=== PATIENT | male | born 1970 | race Caucasian/White ===

== ENCOUNTER 2023-11-20 20:37 | Emergency (ER) | payer OTHER, SELFPAY ==
[2023-11-20 20:43] VITALS: BP 164/86; BMI 25.3
[2023-11-20 21:00] VITALS: BP 130/85
[2023-11-20 21:16] LABS: % Basophils 0.4 % (0-2); % Eosinophils 1.8 % (0-6); % Immature Granulocytes 0.4 % (0-0.5); % Lymphocytes 29.3 % (20.5-51.1); % Neutrophils 61.1 % (42.2-75.2); Absolute Eosinophils 0.2 10^3/uL (0-0.7); Absolute Lymphocytes 2.7 10^3/uL (1.2-3.4); Absolute Monocytes 0.6 10^3/uL (0.1-0.6); Absolute Neutrophils 5.5 10^3/uL (1.4-6.5); Hematocrit 39.2 % (39.0-52.0); Hemoglobin 13.8 g/dL (13.0-18.0); Mean Corp Hgb Conc. 35.2 g/dL (33.0-37.0); Mean Corpuscular Hgb 30.8 pg (27.0-31.0); Mean Corpuscular Volume 87.5 fL (80.0-94.0); Mean Platelet Volume 9.5 fL (7.4-10.4); Nucleated Red Blood Cells % 0 % (-); Platelet Count 250 10^3/uL (130-400); Red Blood Cell Count 4.48 10^6/uL (4.70-6.10); White Blood Cell Count 9.1 10^3/uL (4.8-10.8)
[2023-11-20 21:35] LABS: ALT (SGPT) 22 U/L (0-50); AST (SGOT) 29 U/L (17-59); Albumin 4.5 g/dl (3.5-5.0); Alkaline Phosphatase 93 U/L (38-126); Blood Urea Nitrogen 19 mg/dl (9-20); Calcium 10.3 mg/dl (8.4-10.2); Carbon Dioxide 26 mmol/L (22-30); Chloride 103 mmol/L (98-107); Estimated Creatinine Clearance 105 ml/min; Glucose 109 mg/dl (70-99); Sodium 137 mmol/L (135-145); Total Bilirubin 0.5 mg/dl (0.2-1.3); Total Protein 7.6 g/dl (6.3-8.2); eGFR > 60.00
[2023-11-20 21:42] LABS: Troponin I < 0.012 ng/ml
--- NOTE | 2023-11-20 21:58 | EDRN ---
Updated patient and on lab results, patient resting reading a book.
[2023-11-20 22:00] VITALS: BP 115/73
--- NOTE | 2023-11-20 22:34 | ED.GENMED ---
History of Present Illness
General
Chief Complaint: Chest Pain
Source: patient
Time Seen by Provider: 11/20/23 21:57
Travel History
Have you had any contact with someone who has COVID-19?: No
Do you have any symptoms of coronavirus? Fever > 100 degrees, chills, cough, shortness of breath, sore throat, loss of taste or smell, muscle aches, or headache?: No
History of Present Illness
History of Present Illness:
53-year-old gentleman presents to the emergency room complaining of pain in his chest and back. Patient first recognized the pain yesterday evening. He was asleep and it woke him from sleep. Pain at that time was located in the anterior lower
chest. He describes this as an indigestion type pain. He took Tums which may have helped. The pain went away about an hour after taking them. He was able to sleep the rest of the night. He was fine during the day today but this evening he began
having pain in the back directly behind the spine and the chest he had the pain. This pain is worse with taking a deep breath. He does not feel short of breath. Patient was vacationing in [place] so he did have about a 2-1/2-hour drive there and
back. Patient denies any fever, chills, cough.
Past History
Past History
ED Past Medical History: Other (migraine h/a)
ED Past Surgical History: None
Social History
Tobacco: Non-smoker
Alcohol: None
Drug: None
Personal:
Living: with family
Employment: Employed
Family History
Family History: Hypertension (MGM) and Other (n/c); Negative CAD
Phy Exam
Physical Exam
Physical Exam:
General: Awake, Alert, Oriented X3. No acute distress.
Vitals: unremarkable
Head: Atraumatic
Eyes: Pupils equal, EOMI
Throat: Airway intact, no exudates
Neck: Trachea midline
Lungs: Clear and equal b/l
Heart: Regular rate, no murmurs
Abd: Soft, Nontender, No pulsatile mass
Neuro: Nonfocal
Skin: Warm, dry, no rash
Extremities: pulses equal b/l, no edema
Scores
Heart Score for Chest Pain Patients
STEMI patient?: No
History: Slightly or Non-Suspicious
ECG: Normal
Age: >45 - <65 years
Risk Factors: No Risk Factors
Troponin: </= Normal Limit
Heart Score for Chest Pain Patients: 1
Heart Score Risk: 2.5% MACE over next 6 weeks
Course
Orders/Labs/Results
Orders:
Orders
11/20/23 20:39
Electrocardiogram (*1) Urgent
Reason for Study: Chest Pain
EKG- Treatment ONCE
11/20/23 20:56
Cardiac Monitoring- Treatment ONCE
11/20/23 20:58
CMP [Comprehensive Metabolic Panel] Urgent
Complete Blood Count/With Diff Urgent
Troponin I Urgent
11/20/23 22:34
Ketorolac [Toradol] 15 mg IV NOW STA
11/20/23 22:46
D-Dimer Urgent
11/20/23 23:11
CR Chest - 2 Views Urgent
Comment:
Reason For Exam: chest pain
Abnormal Lab Results
11/20/23
20:58
RBC 4.48 L 10^6/uL
(4.70-6.10)
Glucose 109 H mg/dl
(70-99)
Calcium 10.3 H mg/dl
(8.4-10.2)
11/20/23 20:58
11/20/23 20:58
Vital Signs
Initial and Last Documented VS:
Initial Vital Signs
Temp Pulse Resp BP Pulse Ox
98.4 F 92 16 164/86 100
11/20/23 20:43 11/20/23 20:43 11/20/23 20:43 11/20/23 20:43 11/20/23 20:43
Last Documented Vital Signs
Temp Pulse Resp BP Pulse Ox
98.4 F 85 20 115/73 95
11/20/23 20:43 11/20/23 22:45 11/20/23 22:45 11/20/23 22:00 11/20/23 22:45
MDM/Problems Addressed
Differential Diagnosis Includes:
Acute coronary syndrome, PE, pneumothorax, chest wall pain, GERD
MDM/Problems Addressed:
Patient presents with chest discomfort that is been present now for 24 hours. Pain did seem to improve during the day but returned last night. EKG shows no acute ischemic changes. Troponin is normal. Given the length of time the patient has had
symptoms 1 troponin is adequate. D-dimer is normal. Chest x-ray shows no acute abnormalities. Unclear the source of the patient's chest discomfort but improving if underlying cause. Patient will be given discharge instructions to follow.
[facility] given his medical record number.
*Radiology
Radiology exam reviewed: preliminary read by ED provider (Personally viewed the patient's chest x-ray and see no acute disease)
*Pulse Oximetry
Patient hypoxic: no
*EKG
Interpreted by ED Provider?: Yes
Heart Rate: 95
Rate: normal
Rhythm: sinus
Shaniko: normal axis
Interval: normal interval
QRS Pattern: normal QRS
Ischemia: no ischemia
*Medicaid Billing Clerk Interpretation
Rate: normal
Interpretation: normal
Heart Rate: 95
Rhythm: sinus
*Critical Care Note
Total Time (30-74mins, 75-104mins- exclusive of procedures): Not Applicable
ED Attending Note
-
Portions of this chart may have been created with voice recognition software.� Occasional wrong word or��sound alike� substitutions may have occurred due to the inherent limitations of voice recognition software.
Discharge Plan
Departure
Patient Disposition: Home (Routine Discharge)
Date of Disposition: 11/21/23
Time of Disposition: 00:12
Patient with high blood pressure during this ER visit?: No
Condition: Good
Discharge Problem:
Chest pain
Instructions: Chest Pain DCA Follow Up
Prescriptions:
No Action
rizatriptan [Maxalt] 10 MG tablet
10 mg PO PRN PRN (Reason: migraines)
cyproheptadine 4 mg Tablet
2 mg PO HS
celecoxib [Celebrex] 50 mg Capsule
100 mg PO BID
Referrals:
Alf Hawk PA [Family Provider] -
Interventions
Interventions:
*Risk Screen - Suicide Last Done: 11/20/23 20:42
*General Assessment Last Done: 11/20/23 20:42
*Neglect/Abuse Screening Last Done: 11/20/23 20:42
ED- Fall Risk Assessment Last Done: 11/20/23 21:25
*ED COVID-19 Vaccine History Last Done: 11/20/23 20:43
ED- Cardiac Assessment Last Done: 11/20/23 21:25
Discharge Date and Time
Print Language: BELARUSIAN
[2023-11-20] MEDS: TORADOL 15 MG IV (22:46)
[2023-11-20 23:00] VITALS: BP 113/78
[2023-11-20 23:06] LABS: D-Dimer 0.43 ug/mlFEU (0.00-0.50)
== END 2023-11-21 00:52 | disposition home or self-care (01) ==
LOC: EMR 20:37
PROVIDERS: Emergency Medicine; EMERGENCY PHYSICIAN Emergency Medicine; FAMILY PHYSICIAN Physician Assistant
DX: R07.89 Other chest pain (principal)
CPT/HCPCS: 99285; 96374; 71046; 80053; 84484; 85025; 85379; 93005

== ENCOUNTER 2025-01-13 13:49 | Emergency (ER) | payer OTHER, SELFPAY ==
[2025-01-13 13:52] VITALS: BP 168/99
--- NOTE | 2025-01-13 16:31 | ED.SKININJ ---
HPI-Injury
General
Chief Complaint: Skin Surface Trauma
Source: patient
Exam Limitations: none
Time Seen by Provider: 01/13/25 16:00
Nursing documentation reviewed up to this point in time: agreed with
History of Present Illness-Injury
Initial Injury comments:
54-year-old male presents with a laceration of the right thumb from a piece of wood that kicked back from his table saw. He is unsure as of his last tetanus immunization.
Past History
Past History
ED Past Medical History: Other (migraine h/a)
ED Past Surgical History: None
Social History
Tobacco: Non-smoker
Alcohol: None
Drug: None
Personal:
Living: with family
Employment: Employed
Family History
Family History: Hypertension (MGM) and Other (n/c); Negative CAD
Review of Systems
Review of Systems
Allergies reviewed?: Yes
All Other Systems: ROS reviewed and negative except as documented in HPI and ROS
Skin: Reports other (Cut right thumb)
Neurological: Denies numbness
Skin Exam
Laceration
base of right thumb, dorsal aspect:
Length in cm: 2
Orientation: L shaped
Type of Laceration: simple
Any active bleeding?: low grade venous oozing
Distal skin color and temperature: normal-warm & good color
Normal distal neurovascular exam: Yes
Range of motion: full
Phy Exam
Physical Exam
Physical Exam:
PHYSICAL EXAMINATION:
General: no apparent distress, not acutely ill
Neuro: alert and oriented.
Psychiatric: well kept. interactive and cooperative
Musculoskeletal: Moves with ease
Skin: Warm, pink.
Course
Orders/Labs/Results
Orders:
Orders
01/13/25 16:31
Tetanus/Diphth/Acelpertussis [Adacel] 0.5 ml IM .ONCE ONE
Vital Signs
Initial and Last Documented VS:
Initial Vital Signs
Temp Pulse Resp BP Pulse Ox
98.5 F 80 16 168/99 97
01/13/25 13:52 01/13/25 13:52 01/13/25 13:52 01/13/25 13:52 01/13/25 13:52
Last Documented Vital Signs
Temp Pulse Resp BP Pulse Ox
98.5 F 80 16 168/99 97
01/13/25 13:52 01/13/25 13:52 01/13/25 13:52 01/13/25 13:52 01/13/25 13:52
Procedures
Laceration Closure
base of right thumb, dorsal aspect:
Status of Wound: clean
Size of Wound in cm: 2
Description of Wound Edges: sharp
Preparation: cleaned with saline
Anesthesia: 1% Lidocaine with epi
Revision/Debridement: routine- no revision
Wound exploration: explored to base- no FB and no tendon involvement
Type of Closure: single layer closure
Skin Closure Material: 4-0 nylon
Number of sutures: 8
Additional information:
ATB ointment, non stich and sterile gauze dressing applied
MDM/Problems Addressed
MDM/Problems Addressed:
54-year-old male presents with a laceration of the right thumb from a piece of wood that kicked back from his table saw. He is unsure as of his last tetanus immunization.
Tdap updated
*Critical Care Note
Total Time (30-74mins, 75-104mins- exclusive of procedures): Not Applicable
ED Attending Note
-
Portions of this chart may have been created with voice recognition software.� Occasional wrong word or��sound alike� substitutions may have occurred due to the inherent limitations of voice recognition software.
Discharge Plan
Departure
Patient Disposition: Home (Routine Discharge)
Date of Disposition: 01/13/25
Time of Disposition: 16:35
Patient with high blood pressure during this ER visit?: No
Condition: Good
Discharge Problem:
Laceration of right hand
Instructions: Laceration Repair With Stitches (DC)
Prescriptions:
No Action
rizatriptan [Maxalt] 10 MG tablet
10 mg PO PRN PRN (Reason: migraines)
cyproheptadine 4 mg Tablet
2 mg PO HS
celecoxib [Celebrex] 50 mg Capsule
100 mg PO BID
Referrals:
Alf Hawk PA [Family Provider, Family Practice] - Call in 1-3 days for appt
Activity Restrictions/Additional Instructions:
As we discussed, have the sutures removed in 12 to 14 days.
Seek medical care immediately for signs of infection which may include increasing pain, redness, swelling, pus drainage, red streak up the arm.
Interventions
Interventions:
*Risk Screen - Suicide Last Done: 01/13/25 13:52
*General Assessment Last Done: 01/13/25 13:52
*Neglect/Abuse Screening Last Done: 01/13/25 16:47
*ED- Fall Risk Assessment Last Done: 01/13/25 16:47
*ED COVID-19 Vaccine History Last Done: 01/13/25 16:47
*Nursing Disposition Last Done: 01/13/25 16:47
ED-Skin Assessment Last Done: 01/13/25 16:47
Discharge Date and Time
Discharge Date/Time: 01/13/25 16:48
Print Language: JAPANESE
[2025-01-13] MEDS: ADACEL 0.5 ML IM (16:38)
== END 2025-01-13 16:48 | disposition home or self-care (01) ==
LOC: EMR 13:49
PROVIDERS: EMERGENCY PHYSICIAN Emergency Medicine; FAMILY PHYSICIAN Physician Assistant
DX: S61.011A Laceration without foreign body of right thumb without damage to nail, initial encounter (principal); W20.8XXA Other cause of strike by thrown, projected or falling object, initial encounter; Y93.89 Activity, other specified; Z23 Encounter for immunization; G43.909 Migraine, unspecified, not intractable, without status migrainosus
CPT/HCPCS: 99282; 12001; 90471; 90715